=== PATIENT | male | born 1955 | race Caucasian/White ===

== ENCOUNTER 2021-09-01 14:04 | Emergency (ER) | payer MEDICARE, OTHER ==
[~2021-09-01] VITALS: Ht 170.2 cm; Wt 95.0 kg
[2021-09-01 15:14] LABS: HEMATOCRIT 46.8 % (39.0-50.0); HEMOGLOBIN 15.9 g/dl (14.0-18.0); IMMATURE GRANULOCYTES 0.2 % (0.0-5.0); MEAN CELL VOLUME 94.5 fL CALC (80.0-100.0); MEAN CORPUSCULAR HGB 32.1 pG CALC (26.0-32.0); NEUT# 3.08 thou/uL (1.82-7.42); RED BLOOD COUNT 4.95 mill/uL (4.70-6.10); RED CELL DISTRI WIDTH 13.4 % (11.5-15.5)
[2021-09-01 15:20] LABS: ALBUMIN 4.4 g/dL (3.2-5.0); ALKALINE PHOSPHATASE 81 u/l (38-126); ANION GAP 13 (6-22 (CALC)); BILIRUBIN, TOTAL 0.9 mg/dL (0.0-1.4); BUN 17 mg/dL (8-23); BUN/CREATININE RATIO 19 (12-20 (CALC)); CARBON DIOXIDE 27 mmol/l (22-30); CHLORIDE 105 mmol/l (95-108); CREATININE 0.9 mg/dL (0.7-1.3); GFR > 60 ML/MIN (>=60 (CALC)); GFR FOR AFR.AMER. > 60 ML/MIN (>=60 (CALC)); POTASSIUM 3.2 mmol/l (3.5-5.1); SGOT/AST 108 u/l (19-48); SODIUM 143 mmol/l (137-146); TOTAL PROTEIN 8.9 g/dL (6.3-8.2)
[2021-09-01 17:35] VITALS: BP 141/87
[2021-09-01] MEDS ORDERED: PREDNISONE50 MG PO (17:36)
[2021-09-01] MEDS ORDERED: K-TAB20 MEQ PO (17:36)
== END 2021-09-01 17:45 | disposition home or self-care (01) ==
LOC: ED 14:04
DX: J45.909 Unspecified asthma, uncomplicated (principal); R74.8 Abnormal levels of other serum enzymes; I10 Essential (primary) hypertension; K21.9 Gastro-esophageal reflux disease without esophagitis; Z20.822 Contact with and (suspected) exposure to COVID-19
CPT/HCPCS: Q9967

== ENCOUNTER 2021-12-19 21:35 | Emergency (ER) | payer MEDICARE, OTHER ==
[~2021-12-19 21:35] MED LIST: FUROSEMIDE20 MG PO; HUMIRA10 MG/0.1; HYDROXYZINE HYD25 MG PO; K-TAB20 MEQ PO; KAPSPARGO SPRIN50 MG PO; LIPITOR20 M1 PO; MECLIZINE25 MG PO; PREDNISONE50 MG PO; PROTONIX40 M2 PO
== END 2021-12-19 22:18 | disposition home or self-care (01) ==
LOC: ED 21:35 → LWOBS 22:18
DX: Z53.21 Procedure and treatment not carried out due to patient leaving prior to being seen by health care provider (principal)

== ENCOUNTER 2022-01-02 07:04 | Day surgery (SDC) | payer MEDICARE, OTHER ==
[~2022-01-02] VITALS: Ht 170.2 cm; Wt 96.6 kg
[~2022-01-02 07:04] MED LIST changes: +LOSARTAN POTASS50 MG PO
[2022-01-02] MEDS ORDERED: MAGNESIUM500 M1 PO (08:08)
[2022-01-02] MEDS ORDERED: PERCOCET 5/325M1 TAB PO (10:32)
[2022-01-02 11:40] VITALS: BP 137/93
== END 2022-01-02 11:55 | disposition home or self-care (01) ==
LOC: ORM 07:04
PROVIDERS: ATTEND Surgery
PROC: 0FT44ZZ Resection of Gallbladder, Percutaneous Endoscopic Approach (ICD-10-PCS; principal; 2022-01-02)
DX: K80.10 Calculus of gallbladder with chronic cholecystitis without obstruction (principal); K74.69 Other cirrhosis of liver; I10 Essential (primary) hypertension; E11.9 Type 2 diabetes mellitus without complications; K21.9 Gastro-esophageal reflux disease without esophagitis
CPT/HCPCS: J1610; Q9967

== ENCOUNTER 2022-01-03 00:15 | Emergency (ER) | payer MEDICARE, OTHER ==
[~2022-01-03] VITALS: Ht 170.2 cm; Wt 97.0 kg
[2022-01-03] VITALS (12 sets, daily range): BP systolic 119–172; BP diastolic 78–116
[~2022-01-03 00:15] MED LIST changes: +MAGNESIUM500 M1 PO; +PERCOCET 5/325M1 TAB PO
[2022-01-03 01:14] LABS: IMMATURE GRANULOCYTES 0.1 % (0.0-5.0); MEAN CELL VOLUME 98.3 fL CALC (80.0-100.0); MEAN CORPUSCULAR HGB 32.4 pG CALC (26.0-32.0); NEUT# 11.02 thou/uL (1.82-7.42); RED BLOOD COUNT 4.04 mill/uL (4.70-6.10); RED CELL DISTRI WIDTH 14.4 % (11.5-15.5)
[2022-01-03 01:15] LABS: HEMATOCRIT 39.7 % (39.0-50.0); HEMOGLOBIN 13.1 g/dl (14.0-18.0)
[2022-01-03 01:34] LABS: ALBUMIN 3.9 g/dL (3.2-5.0); ALKALINE PHOSPHATASE 77 u/l (38-126); BUN 23 mg/dL (8-23); BUN/CREATININE RATIO 20 (12-20 (CALC)); CHLORIDE 103 mmol/l (95-108); CREATININE 1.2 mg/dL (0.7-1.3); GFR 60 ML/MIN (>=60 (CALC)); GFR FOR AFR.AMER. > 60 ML/MIN (>=60 (CALC)); LIPASE 79 u/l (23-300); POTASSIUM 4.1 mmol/l (3.5-5.1); SGOT/AST 93 u/l (19-48); SODIUM 137 mmol/l (137-146); TOTAL PROTEIN 9.1 g/dL (6.3-8.2)
[2022-01-03 01:35] LABS: ANION GAP 13 (6-22 (CALC)); CARBON DIOXIDE 25 mmol/l (22-30)
[2022-01-03 01:40] LABS: URINE BLOOD DIPSTICK NEGATIVE (NEGATIVE); URINE COLOR YELLOW; URINE GLUCOSE - DIPSTICK NEGATIVE (NEGATIVE); URINE KETONE NEGATIVE (NEGATIVE); URINE LEUK ESTERASE NEGATIVE (NEGATIVE); URINE PROTEIN - DIPSTICK TRACE mg/dL (NEG-TRACE)
[2022-01-03 01:41] LABS: URINE BILIRUBIN - DIPSTICK SMALL (NEGATIVE); URINE NITRITE - DIPSTICK NEGATIVE (Negative)
[2022-01-03 02:02] LABS: ACT PARTIAL THROMBO TIME 27.6 SECONDS (20.0-32.5); INTERNATIONAL NORMALIZED RATIO 1.2 RATIO (0.7-1.3); PROTHROMBIN TIME 12.8 SECONDS (9.0-12.5)
== END 2022-01-03 05:19 | disposition home or self-care (01) ==
LOC: ED 00:15
DX: G89.18 Other acute postprocedural pain (principal); I10 Essential (primary) hypertension; E11.9 Type 2 diabetes mellitus without complications; K21.9 Gastro-esophageal reflux disease without esophagitis; Z90.49 Acquired absence of other specified parts of digestive tract
CPT/HCPCS: Q9967

== ENCOUNTER 2022-01-03 11:36 | Inpatient (IN) | payer MEDICARE, OTHER ==
[2022-01-03] VITALS (23 sets, daily range): BP systolic 112–167; BP diastolic 75–109
[~2022-01-03] VITALS: Ht 170.2 cm; Wt 100.0 kg
[2022-01-03 12:38] LABS: GFR 60 ML/MIN (>=60 (CALC)); GFR FOR AFR.AMER. > 60 ML/MIN (>=60 (CALC))
[2022-01-03 12:39] LABS: HEMATOCRIT 39.5 % (39.0-50.0); HEMOGLOBIN 13.2 g/dl (14.0-18.0); IMMATURE GRANULOCYTES 0.3 % (0.0-5.0); MEAN CELL VOLUME 99.2 fL CALC (80.0-100.0); MEAN CORPUSCULAR HGB 33.2 pG CALC (26.0-32.0); MEAN CORPUSCULAR HGB CONC 33.4 g/dL CAL (32.0-36.0); NEUT# 11.73 thou/uL (1.82-7.42); RED BLOOD COUNT 3.98 mill/uL (4.70-6.10); RED CELL DISTRI WIDTH 14.6 % (11.5-15.5)
[2022-01-03 12:55] LABS: ALBUMIN 4.2 g/dL (3.2-5.0); ALKALINE PHOSPHATASE 88 u/l (38-126); ANION GAP 16 (6-22 (CALC)); BUN 24 mg/dL (8-23); BUN/CREATININE RATIO 19 (12-20 (CALC)); CARBON DIOXIDE 24 mmol/l (22-30); CHLORIDE 101 mmol/l (95-108); CREATININE 1.3 mg/dL (0.7-1.3); GFR 55 ML/MIN (>=60 (CALC)); GFR FOR AFR.AMER. > 60 ML/MIN (>=60 (CALC)); LIPASE 61 u/l (23-300); POTASSIUM 3.8 mmol/l (3.5-5.1); SGOT/AST 83 u/l (19-48); SODIUM 138 mmol/l (137-146); TOTAL PROTEIN 9.9 g/dL (6.3-8.2)
[2022-01-03 12:56] LABS: BILIRUBIN, TOTAL 2.9 mg/dL (0.0-1.4); INTERNATIONAL NORMALIZED RATIO 1.2 RATIO (0.7-1.3); PROTHROMBIN TIME 12.5 SECONDS (9.0-12.5)
[2022-01-03 13:35] LABS: URINE BILIRUBIN - DIPSTICK NEGATIVE (NEGATIVE); URINE BLOOD DIPSTICK SMALL (NEGATIVE); URINE COLOR YELLOW; URINE GLUCOSE - DIPSTICK NEGATIVE (NEGATIVE); URINE KETONE NEGATIVE (NEGATIVE); URINE LEUK ESTERASE NEGATIVE (NEGATIVE); URINE PH 5.5 (4.5-8.0); URINE PROTEIN - DIPSTICK 30 mg/dL (NEG-TRACE); URINE SPECIFIC GRAVITY 1.025
[2022-01-03 13:37] LABS: URINE NITRITE - DIPSTICK NEGATIVE (Negative)
[2022-01-03 13:47] LABS: URINE COARSE GRANULAR CAST FEW lpf; URINE HYALINE CAST FEW lpf (NONE-RARE); URINE RBC 0-2 RBC/hpf (0-5); URINE WBC 0-2 WBC/hpf (0-5)
[2022-01-04] VITALS (15 sets, daily range): BP systolic 100–150; BP diastolic 49–129
[2022-01-04 06:26] LABS: URINE BILIRUBIN - DIPSTICK NEGATIVE (NEGATIVE); URINE BLOOD DIPSTICK TRACE-INTACT (NEGATIVE); URINE COLOR YELLOW; URINE GLUCOSE - DIPSTICK NEGATIVE (NEGATIVE); URINE KETONE NEGATIVE (NEGATIVE); URINE LEUK ESTERASE NEGATIVE (NEGATIVE); URINE PH 5.5 (4.5-8.0); URINE PROTEIN - DIPSTICK NEGATIVE (NEG-TRACE); URINE SPECIFIC GRAVITY 1.025; URINE UROBILINOGEN - DIPSTICK 0.2 E.U./dL (0.2)
[2022-01-04 06:29] LABS: URINE NITRITE - DIPSTICK NEGATIVE (Negative)
[2022-01-04 06:39] LABS: HEMATOCRIT 39.3 % (39.0-50.0); HEMOGLOBIN 12.5 g/dl (14.0-18.0); IMMATURE GRANULOCYTES 0.2 % (0.0-5.0); MEAN CELL VOLUME 103.1 fL CALC (80.0-100.0); MEAN CORPUSCULAR HGB 32.8 pG CALC (26.0-32.0); MEAN CORPUSCULAR HGB CONC 31.8 g/dL CAL (32.0-36.0); NEUT# 9.87 thou/uL (1.82-7.42); RED BLOOD COUNT 3.81 mill/uL (4.70-6.10); RED CELL DISTRI WIDTH 14.7 % (11.5-15.5)
[2022-01-04 06:46] LABS: ALBUMIN 3.6 g/dL (3.2-5.0); BILIRUBIN, TOTAL 2.3 mg/dL (0.0-1.4); CREATININE 1.8 mg/dL (0.7-1.3); POTASSIUM 4.2 mmol/l (3.5-5.1); TOTAL PROTEIN 8.3 g/dL (6.3-8.2)
== END 2022-01-04 12:00 | disposition left against medical advice (07) | DRG 862 ==
LOC: ED 11:36 → ED-I 13:00 → ED 13:42 → ICU 13:43
PROVIDERS: Family Medicine; Surgery; ADMIT Internal Medicine; ATTEND Internal Medicine
DX: T81.44XA Sepsis following a procedure, initial encounter (principal); J96.01 Acute respiratory failure with hypoxia; R65.20 Severe sepsis without septic shock; A41.9 Sepsis, unspecified organism; N17.9 Acute kidney failure, unspecified; G89.18 Other acute postprocedural pain; I11.0 Hypertensive heart disease with heart failure; I50.9 Heart failure, unspecified; E11.9 Type 2 diabetes mellitus without complications; K21.9 Gastro-esophageal reflux disease without esophagitis; E78.5 Hyperlipidemia, unspecified; G47.30 Sleep apnea, unspecified; Y83.6 Removal of other organ (partial) (total) as the cause of abnormal reaction of the patient, or of later complication, without mention of misadventure at the time of the procedure; Z90.49 Acquired absence of other specified parts of digestive tract; Z20.822 Contact with and (suspected) exposure to COVID-19
CPT/HCPCS: G0378; J1650; S0164

== ENCOUNTER 2022-08-25 16:50 | Observation (INO) | payer MEDICARE, OTHER ==
[~2022-08-25] VITALS: Ht 170.2 cm; Wt 92.7 kg
[2022-08-25] VITALS (53 sets, daily range): BP systolic 52–143; BP diastolic 34–103
[~2022-08-25 16:50] MED LIST changes: +CIPROFLOXACN750 MG PO; +METRONIDAZOLE500 MG PO
--- NOTE | 2022-08-25 16:50 | NUR ---
PATIENT TO ED VIA EMS WITH IGEL IN PLACE, PATIENT MOVING ARMS AND LEGS. AT BEDSIDE, VERBAL ORDER TO PREP FOR RAPID INTUBATION.
[2022-08-25 17:25] LABS: IMMATURE GRANULOCYTES 1.1 % (0.0-5.0); MEAN CORPUSCULAR HGB 34.4 pG CALC (26.0-32.0); MEAN CORPUSCULAR HGB CONC 33.4 g/dL CAL (32.0-36.0); NEUT# 6.76 thou/uL (1.82-7.42); RED BLOOD COUNT 4.39 mill/uL (4.70-6.10); RED CELL DISTRI WIDTH 14.4 % (11.5-15.5)
[2022-08-25 17:28] LABS: INTERNATIONAL NORMALIZED RATIO 1.3 RATIO (0.7-1.3)
[2022-08-25 17:29] LABS: HEMATOCRIT 45.2 % (39.0-50.0); HEMOGLOBIN 15.1 g/dl (14.0-18.0)
[2022-08-25 17:38] LABS: ALBUMIN 3.9 g/dL (3.2-5.0); ALKALINE PHOSPHATASE 105 u/l (38-126); BILIRUBIN, TOTAL 1.4 mg/dL (0.0-1.4); BUN 19 mg/dL (8-23); BUN/CREATININE RATIO 13 (12-20 (CALC)); CARBON DIOXIDE 24 mmol/l (22-30); CHLORIDE 109 mmol/l (95-108); CREATININE 1.4 mg/dL (0.7-1.3); ETHYL ALCOHOL 31 mg/dl (0-30); GFR FOR AFR.AMER. > 60 ML/MIN (>=60 (CALC)); GFR OTHER RACES 50 ML/MIN (>=60 (CALC)); LIPASE 447 u/l (23-300); SGOT/AST 123 u/l (19-48); SODIUM 145 mmol/l (137-146); TOTAL PROTEIN 9.6 g/dL (6.3-8.2)
[2022-08-25 17:40] LABS: ANION GAP 17 (6-22 (CALC)); POTASSIUM 5.3 mmol/l (3.5-5.1)
[2022-08-25 17:48] LABS: MYOGLOBIN 59 ng/mL (0 - 121)
[2022-08-25 18:53] LABS: URINE BILIRUBIN - DIPSTICK NEGATIVE (NEGATIVE); URINE BLOOD DIPSTICK NEGATIVE (NEGATIVE); URINE COLOR YELLOW; URINE GLUCOSE - DIPSTICK NEGATIVE (NEGATIVE); URINE KETONE NEGATIVE (NEGATIVE); URINE LEUK ESTERASE NEGATIVE (NEGATIVE); URINE PROTEIN - DIPSTICK NEGATIVE (NEG-TRACE); URINE UROBILINOGEN - DIPSTICK 0.2 E.U./dL (0.2)
--- NOTE | 2022-08-25 18:55 | NUR ---
TRANSITION OF CARE BEDSIDE REPORT TO PHUONG CASAS.
[2022-08-25 18:56] LABS: URINE NITRITE - DIPSTICK NEGATIVE (Negative)
--- NOTE | 2022-08-25 19:35 | NUR ---
RT AT BEDSIDE WEANING PT OFF VENTILATOR DUE TO PT BEING AWAKE AND ALERT AND OXYGENATING WELL. PT WRITING NOTES ON PAPER. PROVIDER AT BEDSIDE.
--- NOTE | 2022-08-25 20:00 | NUR ---
PT EXTUBATED PER DR. HERNANDEZ, DR. HERNANDEZ AND JOLIE RT AT BEDSIDE. PT OXYGENATING WELL, TOLERATING WELL, PT ALERT AND AWAKE. PT REPORTS RELIEF, PLACED ON 3L NC. PT IN NAD, A&OX4, UNLABORED BREATHING NOTED. SLIGHT COUGH NOTED.
--- NOTE | 2022-08-25 21:24 | NUR ---
NASAL CANNULA REMOVED PER PT REQUEST, PT OXYGENATING >92%. PT IN NAD.
--- NOTE | 2022-08-25 22:03 | NUR ---
REPORT GIVEN TO JUWAN CASAS. PT IN NAD, UPDATED ON PLAN OF CARE.
[2022-08-26 03:19] VITALS: BP 145/87
--- NOTE | 2022-08-26 04:26 | NUR ---
Pt alert, oriented x3, able to make needs known. HR-RRR, pt denies pain, chest pain, pressure. No edema noted. Lung sounds clear, pt denies SOB, difficulty breathing. Abd soft, nontender, BT noted. Pt denies nausea. CMS intact. SCD in place. Pt denies needs at this time. Pt resting in no sign of discomfort, will continue to monitor.
[2022-08-26 05:18] VITALS: BP 151/90
[2022-08-26 05:46] LABS: HEMATOCRIT 39.9 % (39.0-50.0); HEMOGLOBIN 13.2 g/dl (14.0-18.0); IMMATURE GRANULOCYTES 0.1 % (0.0-5.0); MEAN CELL VOLUME 103.1 fL CALC (80.0-100.0); MEAN CORPUSCULAR HGB 34.1 pG CALC (26.0-32.0); MEAN CORPUSCULAR HGB CONC 33.1 g/dL CAL (32.0-36.0); NEUT# 5.77 thou/uL (1.82-7.42); RED BLOOD COUNT 3.87 mill/uL (4.70-6.10); RED CELL DISTRI WIDTH 14.7 % (11.5-15.5)
[2022-08-26 06:03] LABS: ALKALINE PHOSPHATASE 85 u/l (38-126); BILIRUBIN, TOTAL 1.6 mg/dL (0.0-1.4); BUN 17 mg/dL (8-23); BUN/CREATININE RATIO 16 (12-20 (CALC)); CARBON DIOXIDE 25 mmol/l (22-30); CHLORIDE 112 mmol/l (95-108); CREATININE 1.1 mg/dL (0.7-1.3); GFR FOR AFR.AMER. > 60 ML/MIN (>=60 (CALC)); GFR OTHER RACES > 60 ML/MIN (>=60 (CALC)); MAGNESIUM 1.1 mg/dL (1.6-2.3); SGOT/AST 96 u/l (19-48); SODIUM 145 mmol/l (137-146)
[2022-08-26 06:10] VITALS: BP 151/90
[2022-08-26 06:19] LABS: ANION GAP 12 (6-22 (CALC)); POTASSIUM 4.2 mmol/l (3.5-5.1); TOTAL PROTEIN 7.6 g/dL (6.3-8.2)
--- NOTE | 2022-08-26 07:30 | NUR ---
BEDSIDE SHIFT REPORT, PT AWAKE ALERT AND ORIENTED, C/O SEVERE ACHING HEADACHE @ "13/10", AND HUNGER, INFORMED OF MEDICAL NPO ORDERS AND THAT MD WILL EVALUATE CONDITION ON ROUNDS. PAIN CONCERN ADDRESSED, TELE MONITOR IN PLACE, IVF 0.9 NS INFUSING @ 100 ML/HR TO SITE IN , CALL [place] IN REACH AND BED LOCKED IN LOWEST POSITION.
[2022-08-26 09:32] VITALS: BP 116/65
[2022-08-26 10:30] VITALS: BP 116/65
--- NOTE | 2022-08-26 12:03 | NUR ---
PT IS FEELING MUCH BETTER NOW, GETTING IV MAGNESIUM, EDUCATED ON BENEFITS OF THIS MED AND STATED UNDERSTANDING, WILL GO HOME AT COMPLETION OF MAG INFUSION.
--- NOTE | 2022-08-26 13:13 | NUR ---
Discharge instructions given. Patient verbalizes understanding of same. Discharged in good condition via Wheelchair to Home with family. All belongings sent with pt.
--- NOTE | 2022-08-26 13:14 | NUR ---
# 20 IV CATHETER REMOVED FROM RAC AND 20 REMOVED FROM LH, PRESSURE DRESSING APPLIED, PT TOLERATED WELL.
== END 2022-08-26 13:15 | disposition home or self-care (01) ==
LOC: ED 16:50 → ED-I 20:10 → ED 20:25 → MS2 20:26
PROVIDERS: Family Medicine; ADMIT Internal Medicine; ATTEND Internal Medicine
PROC: 0T9B70Z Drainage of Bladder with Drainage Device, Via Natural or Artificial Opening (ICD-10-PCS; principal; 2022-08-25)
PROC: 5A1935Z Respiratory Ventilation, Less than 24 Consecutive Hours (ICD-10-PCS; 2022-08-25)
DX: R41.82 Altered mental status, unspecified (principal); J96.01 Acute respiratory failure with hypoxia; I11.0 Hypertensive heart disease with heart failure; I50.9 Heart failure, unspecified; E11.9 Type 2 diabetes mellitus without complications; K21.9 Gastro-esophageal reflux disease without esophagitis; E86.0 Dehydration; E78.5 Hyperlipidemia, unspecified
CPT/HCPCS: J3475; Q9967

== ENCOUNTER 2023-06-02 17:56 | Emergency (ER) | payer MEDICARE, OTHER ==
[2023-06-02] VITALS (19 sets, daily range): BP systolic 82–136; BP diastolic 50–91
[~2023-06-02] VITALS: Ht 170.2 cm; Wt 82.0 kg
[2023-06-02 20:18] LABS: BASO% 0.8 % (0-3); IMMATURE GRANULOCYTES 0.3 % (0.0-5.0); MEAN CELL VOLUME 104.8 fL CALC (80.0-100.0); MEAN CORPUSCULAR HGB 34.6 pG CALC (26.0-32.0); MEAN CORPUSCULAR HGB CONC 33.1 g/dL CAL (32.0-36.0); NEUT# 3.37 thou/uL (1.82-7.42); NEUT% 43.9 % (42-76); RED BLOOD COUNT 2.31 mill/uL (4.70-6.10); RED CELL DISTRI WIDTH 17.2 % (11.5-15.5)
[2023-06-02 20:46] LABS: HEMATOCRIT 24.2 % (39.0-50.0)
[2023-06-02 21:13] LABS: ALBUMIN 2.6 g/dL (3.2-5.0); ALKALINE PHOSPHATASE 105 u/l (38-126); ANION GAP 12 (6-22 (CALC)); BUN 21 mg/dL (8-23); BUN/CREATININE RATIO 18 (12-20 (CALC)); CARBON DIOXIDE 25 mmol/l (22-30); CHLORIDE 110 mmol/l (95-108); CREATININE 1.1 mg/dL (0.7-1.3); GFR FOR AFR.AMER. > 60 ML/MIN (>=60 (CALC)); GFR OTHER RACES > 60 ML/MIN (>=60 (CALC)); POTASSIUM 4.1 mmol/l (3.5-5.1); SGOT/AST 115 u/l (19-48); SODIUM 143 mmol/l (137-146); TOTAL PROTEIN 8.3 g/dL (6.3-8.2)
[2023-06-02 21:20] LABS: INTERNATIONAL NORMALIZED RATIO 1.6 RATIO (0.7-1.3); PROTHROMBIN TIME 15.5 SECONDS (9.0-12.5)
[2023-06-02 21:23] LABS: BILIRUBIN, TOTAL 3.6 mg/dL (0.2-1.3)
[2023-06-02 21:28] LABS: D-DIMER 26.03 mg/L (0.19-0.60)
[2023-06-03] MEDS ORDERED: LASIX 20 MG TAB20 MG PO (10:44)
== END 2023-06-02 23:30 | disposition left against medical advice (07) ==
LOC: ED 17:56
PROVIDERS: Nurse Practitioner Family
DX: K74.60 Unspecified cirrhosis of liver (principal); R18.8 Other ascites; D64.9 Anemia, unspecified; E83.51 Hypocalcemia; I10 Essential (primary) hypertension; Z53.29 Procedure and treatment not carried out because of patient's decision for other reasons
CPT/HCPCS: Q9967

== ENCOUNTER 2023-06-03 07:43 | Emergency (ER) | payer MEDICARE, OTHER ==
[~2023-06-03] VITALS: Ht 170.2 cm; Wt 98.9 kg
[2023-06-03] VITALS (9 sets, daily range): BP systolic 96–120; BP diastolic 64–76
[2023-06-03 08:21] LABS: BASO% 0.2 % (0-3); HEMATOCRIT 28.7 % (39.0-50.0); HEMOGLOBIN 9.4 g/dl (14.0-18.0); IMMATURE GRANULOCYTES 0.2 % (0.0-5.0); LYMPH% 19.2 % (15-41); MEAN CELL VOLUME 105.1 fL CALC (80.0-100.0); MEAN CORPUSCULAR HGB 34.4 pG CALC (26.0-32.0); MEAN CORPUSCULAR HGB CONC 32.8 g/dL CAL (32.0-36.0); MONO% 4.4 % (2-13); NEUT# 3.43 thou/uL (1.82-7.42); RED BLOOD COUNT 2.73 mill/uL (4.70-6.10); RED CELL DISTRI WIDTH 16.7 % (11.5-15.5)
[2023-06-03 08:47] LABS: ALBUMIN 2.8 g/dL (3.2-5.0); ALKALINE PHOSPHATASE 103 u/l (38-126); ANION GAP 12 (6-22 (CALC)); BILIRUBIN, TOTAL 3.1 mg/dL (0.2-1.3); BUN 23 mg/dL (8-23); BUN/CREATININE RATIO 22 (12-20 (CALC)); CARBON DIOXIDE 23 mmol/l (22-30); CHLORIDE 108 mmol/l (95-108); GFR FOR AFR.AMER. > 60 ML/MIN (>=60 (CALC)); GFR OTHER RACES > 60 ML/MIN (>=60 (CALC)); POTASSIUM 3.6 mmol/l (3.5-5.1); SGOT/AST 119 u/l (19-48); SODIUM 140 mmol/l (137-146); TOTAL PROTEIN 8.9 g/dL (6.3-8.2)
[2023-06-03] MEDS ORDERED: LASIX 20 MG TAB20 MG PO (10:44)
== END 2023-06-03 10:53 | disposition left against medical advice (07) ==
LOC: ED 07:43 → ED-I 09:40 → ED 10:53
PROVIDERS: Family Medicine
PROC: 0W9G3ZZ Drainage of Peritoneal Cavity, Percutaneous Approach (ICD-10-PCS; principal; 2023-06-03)
DX: K74.60 Unspecified cirrhosis of liver (principal); R18.8 Other ascites; I10 Essential (primary) hypertension; F10.10 Alcohol abuse, uncomplicated; E66.9 Obesity, unspecified; Z53.29 Procedure and treatment not carried out because of patient's decision for other reasons

== ENCOUNTER 2023-06-10 00:28 | Emergency (ER) | payer MEDICARE, OTHER ==
[~2023-06-10] VITALS: Ht 170.2 cm; Wt 78.0 kg
[2023-06-10] VITALS (10 sets, daily range): BP systolic 112–138; BP diastolic 68–84
[~2023-06-10 00:28] MED LIST changes: +LASIX 20 MG TAB20 MG PO
[2023-06-10] MEDS ORDERED: LASIX 40 MG TAB40 MG PO (01:03)
[2023-06-10] MEDS ORDERED: METOPROLOL100 M1 PO (01:05)
[2023-06-10 01:16] LABS: BASO% 0.8 % (0-3); EOS% 4.3 % (0-8); HEMOGLOBIN 9.8 g/dl (14.0-18.0); IMMATURE GRANULOCYTES 0.2 % (0.0-5.0); LYMPH% 31.2 % (15-41); MEAN CELL VOLUME 101.8 fL CALC (80.0-100.0); MEAN CORPUSCULAR HGB 34.4 pG CALC (26.0-32.0); MEAN CORPUSCULAR HGB CONC 33.8 g/dL CAL (32.0-36.0); MONO% 12.6 % (2-13); NEUT# 3.2 thou/uL (1.82-7.42); NEUT% 50.9 % (42-76); RED BLOOD COUNT 2.85 mill/uL (4.70-6.10); RED CELL DISTRI WIDTH 16.2 % (11.5-15.5)
[2023-06-10 01:27] LABS: ALBUMIN 2.8 g/dL (3.2-5.0); ALKALINE PHOSPHATASE 124 u/l (38-126); ANION GAP 8 (6-22 (CALC)); BILIRUBIN, TOTAL 3.8 mg/dL (0.2-1.3); BUN 17 mg/dL (8-23); BUN/CREATININE RATIO 21 (12-20 (CALC)); CHLORIDE 105 mmol/l (95-108); CREATININE 0.8 mg/dL (0.7-1.3); ETHYL ALCOHOL 0 mg/dl (0-30); GFR FOR AFR.AMER. > 60 ML/MIN (>=60 (CALC)); GFR OTHER RACES > 60 ML/MIN (>=60 (CALC)); SGOT/AST 123 u/l (19-48); SODIUM 138 mmol/l (137-146); TOTAL PROTEIN 8.5 g/dL (6.3-8.2)
[2023-06-10 01:40] LABS: CARBON DIOXIDE 28 mmol/l (22-30)
[2023-06-10 01:48] LABS: INTERNATIONAL NORMALIZED RATIO 1.5 RATIO (0.7-1.3); PROTHROMBIN TIME 16.1 SECONDS (9.0-12.5)
[2023-06-10] MEDS ORDERED: KRISTALOSE20 GM PO (02:30)
[2023-06-10] MEDS ORDERED: POTASSIUM CHLO20 ME1 PO (02:30)
[2023-06-10] MEDS ORDERED: SPIRONOLACT25 MG PO (02:33)
[2023-06-11] MEDS ORDERED: CONSTULOSE10 GM/15 M PO (11:38)
== END 2023-06-10 02:45 | disposition home or self-care (01) ==
LOC: ED 00:28
PROVIDERS: Family Medicine
DX: K74.60 Unspecified cirrhosis of liver (principal); R18.8 Other ascites; I10 Essential (primary) hypertension; Z20.822 Contact with and (suspected) exposure to COVID-19; R07.9 Chest pain, unspecified

== ENCOUNTER 2023-06-17 07:29 | Emergency (ER) | payer MEDICARE, OTHER ==
[2023-06-17] VITALS (16 sets, daily range): BP systolic 106–134; BP diastolic 68–92
[~2023-06-17] VITALS: Ht 170.2 cm; Wt 78.4 kg
[~2023-06-17 07:29] MED LIST changes: +CONSTULOSE10 GM/15 M PO; +KRISTALOSE20 GM PO; +LASIX 40 MG TAB40 MG PO; +METOPROLOL100 M1 PO; +POTASSIUM CHLO20 ME1 PO; +SPIRONOLACT25 MG PO
[2023-06-17 07:57] LABS: BASO% 0.6 % (0-3); EOS% 4.5 % (0-8); HEMATOCRIT 29.6 % (39.0-50.0); HEMOGLOBIN 10.3 g/dl (14.0-18.0); IMMATURE GRANULOCYTES 0.1 % (0.0-5.0); LYMPH% 34.1 % (15-41); MEAN CORPUSCULAR HGB 35.2 pG CALC (26.0-32.0); MEAN CORPUSCULAR HGB CONC 34.8 g/dL CAL (32.0-36.0); MONO% 7.4 % (2-13); NEUT# 3.7 thou/uL (1.82-7.42); NEUT% 53.3 % (42-76); RED BLOOD COUNT 2.93 mill/uL (4.70-6.10); RED CELL DISTRI WIDTH 15.7 % (11.5-15.5)
[2023-06-17 08:11] LABS: INTERNATIONAL NORMALIZED RATIO 1.6 RATIO (0.7-1.3)
[2023-06-17] MEDS ORDERED: CREON1 CAP (08:12)
[2023-06-17 08:15] LABS: ALBUMIN 2.9 g/dL (3.2-5.0); ALKALINE PHOSPHATASE 125 u/l (38-126); ANION GAP 10 (6-22 (CALC)); BILIRUBIN, TOTAL 3.6 mg/dL (0.2-1.3); BUN 10 mg/dL (8-23); BUN/CREATININE RATIO 12 (12-20 (CALC)); CARBON DIOXIDE 26 mmol/l (22-30); CHLORIDE 104 mmol/l (95-108); CREATININE 0.9 mg/dL (0.7-1.3); GFR FOR AFR.AMER. > 60 ML/MIN (>=60 (CALC)); GFR OTHER RACES > 60 ML/MIN (>=60 (CALC)); LIPASE 159 u/l (23-300); POTASSIUM 3.9 mmol/l (3.5-5.1); SGOT/AST 119 u/l (19-48); SODIUM 136 mmol/l (137-146); TOTAL PROTEIN 8.7 g/dL (6.3-8.2)
[2023-06-17 12:21] LABS: URINE BILIRUBIN - DIPSTICK Negative (NEGATIVE); URINE BLOOD DIPSTICK Negative (NEGATIVE); URINE GLUCOSE - DIPSTICK Negative (NEGATIVE); URINE KETONE Negative (NEGATIVE); URINE LEUK ESTERASE Negative (NEGATIVE); URINE NITRITE - DIPSTICK Negative (Negative); URINE PROTEIN - DIPSTICK Negative (NEG-TRACE); URINE SPECIFIC GRAVITY <=1.005
[2023-06-17 12:30] LABS: URINE COLOR Yellow
== END 2023-06-17 15:51 | disposition home or self-care (01) ==
LOC: ED 07:29
PROVIDERS: Family Medicine
PROC: 0W9G3ZZ Drainage of Peritoneal Cavity, Percutaneous Approach (ICD-10-PCS; principal; 2023-06-17)
DX: K70.31 Alcoholic cirrhosis of liver with ascites (principal); I10 Essential (primary) hypertension; N28.1 Cyst of kidney, acquired; F10.10 Alcohol abuse, uncomplicated
CPT/HCPCS: P9047; Q9967

== ENCOUNTER 2023-06-27 19:09 | Inpatient (IN) | payer MEDICARE, OTHER ==
[~2023-06-27] VITALS: Ht 170.2 cm; Wt 70.0 kg
[~2023-06-27 19:09] MED LIST changes: +CREON1 CAP
--- NOTE | 2023-06-27 19:09 | NUR ---
PATIENT AMBULATORY A FEW STEPS TO ER STRETCHER. UNDRESSED INTO A GOWN, PLACED ON MONITOR. TRIAGE COMPLETED AT BEDSIDE.
[2023-06-27 19:17] VITALS: BP 127/80
[2023-06-27 20:00] VITALS: BP 111/67
[2023-06-27 20:05] LABS: BASO% 0.3 % (0-3); EOS% 3.2 % (0-8); HEMATOCRIT 28.4 % (39.0-50.0); HEMOGLOBIN 9.6 g/dl (14.0-18.0); IMMATURE GRANULOCYTES 0.5 % (0.0-5.0); LYMPH% 27.6 % (15-41); MEAN CELL VOLUME 101.1 fL CALC (80.0-100.0); MEAN CORPUSCULAR HGB 34.2 pG CALC (26.0-32.0); MEAN CORPUSCULAR HGB CONC 33.8 g/dL CAL (32.0-36.0); MONO% 11.7 % (2-13); NEUT# 3.53 thou/uL (1.82-7.42); NEUT% 56.7 % (42-76); RED BLOOD COUNT 2.81 mill/uL (4.70-6.10); RED CELL DISTRI WIDTH 14.6 % (11.5-15.5)
--- NOTE | 2023-06-27 20:13 | NUR ---
PATIENT ATTEMPTING TO VOID FOR URINE AMPLE, URINAL PROVIDED, PATIENT ALERT, C/O DISCOMFORT RATED A 3/10, PATIENT UPDATED ON CONTINUOUS PLAN OF CARE, AWAITING RESULTS AND CHEST XRAY.
[2023-06-27 20:16] LABS: ALBUMIN 2.9 g/dL (3.2-5.0); ALKALINE PHOSPHATASE 108 u/l (38-126); ANION GAP 10 (6-22 (CALC)); BILIRUBIN, TOTAL 2.7 mg/dL (0.2-1.3); BUN 17 mg/dL (8-23); BUN/CREATININE RATIO 18 (12-20 (CALC)); CARBON DIOXIDE 27 mmol/l (22-30); CHLORIDE 103 mmol/l (95-108); GFR FOR AFR.AMER. > 60 ML/MIN (>=60 (CALC)); GFR OTHER RACES > 60 ML/MIN (>=60 (CALC)); POTASSIUM 3.6 mmol/l (3.5-5.1); SGOT/AST 113 u/l (19-48); SODIUM 136 mmol/l (137-146); TOTAL PROTEIN 8.5 g/dL (6.3-8.2)
[2023-06-27 20:17] LABS: INTERNATIONAL NORMALIZED RATIO 1.8 RATIO (0.7-1.3); PROTHROMBIN TIME 16.3 SECONDS (9.0-12.5)
[2023-06-27 20:45] VITALS: BP 118/67
--- NOTE | 2023-06-27 21:00 | NUR ---
PATIENT RESTING ON STRETCHER. GIVEN WARM BLANKETS. PATIENT ENCOURAGED TO VOID FOR URINE SAMPLE.
--- NOTE | 2023-06-27 22:00 | NUR ---
PATIENT C/O FEELING WEAK, AND OVERALL NOT FEELING WELL. MD AWARE. CONTINUE AWAITING ALL RESULTS AND PLAN OF CARE.
[2023-06-27 22:55] VITALS: BP 133/86
[2023-06-27 23:00] VITALS: BP 113/77
[2023-06-27 23:03] LABS: URINE BILIRUBIN - DIPSTICK Negative (NEGATIVE); URINE BLOOD DIPSTICK Negative (NEGATIVE); URINE COLOR Yellow; URINE GLUCOSE - DIPSTICK Negative (NEGATIVE); URINE KETONE Negative (NEGATIVE); URINE LEUK ESTERASE Negative (NEGATIVE); URINE NITRITE - DIPSTICK Negative (Negative); URINE PROTEIN - DIPSTICK Negative (NEG-TRACE); URINE SPECIFIC GRAVITY 1.015
--- NOTE | 2023-06-27 23:15 | NUR ---
PATIENT TO BE ADMITTED. ABX HUNG ORDERED. AWAITING ORDERS AND PLAN OF CARE.
--- NOTE | 2023-06-28 | NUR ---
PATIENT ADMITTED FROM ER VIA STRETCHER WITH ER STAFF IN ATTENDANCE. PATIENT MAX ASSIST FROM STRETCHER TO THE STANDING SCALE TO THE BED. PATIENT STATES THAT HE THINKS HE HAS TO URINATE BUT CAN'T. PATIENT IS ORIENTED TO PERSON AND PLACE BUT VERY ANXIOUS. PATIENT ADMITTED WITH LIVER CIRRHOSIS, ELVATED AMMONIA AND COLITIS. PATIENT WITH TELE MONITOR IN PLACE. SALINE LOCK TO LEFT WRIST INTACT AND HEALTHY AT THIS TIME.LUNGS ARE CLEAR WITH O2 SAT OF 95%. PATIENT IS JAUNDICE WITH ASCITES. HAD PARACENTESIS DONE 8 DAYS AGO AND OVER 5 LITERS REMOVED. STATES THAT HE STOPPED DRINKING ALCOHOL SEVERAL DAYS AGO. LUNGS ARE CLEAR. PATIENT STATES THAT HIS LAST BM WAS YESTERDAY. HAVING TROUBLE WITH URINATION. NO PERIOPHERAL EDEMA NOTED. PULSES ARE PALPABLE. PATIENT ORIENTED TO ROOM AND SURROUNDINGS. INSTRUCTED ON USE OF NURSE CALL LIGHT SYSTEM AND TV REMOTE. MEDICATED WITH LACTULOSE ORDERED AND TAKING PO FLUJIDS WITHOUT ANY DIFFICULTY. SAFETY PRECAUTIONS REINFORCED. BED ALARM IN PLACE FOR PATIENT SAFETY. CALL LIGHT IN REACH. WILL CONT TO MONITOR.
--- NOTE | 2023-06-28 00:15 | NUR ---
PATIENT TO MED SURG VIA STRETCHER.
[2023-06-28 00:35] VITALS: BP 128/78
--- NOTE | 2023-06-28 01:45 | NUR ---
PATIENT STATES THAT HE FEELS LIKE HE HAS TO VOID BUT CAN'T EVEN STANDING AT BEDSIDE WITH ASSIST. BLADDER SCAN WAS DONE AND SHOWS 505MLS. #16 [place] QUARLES CATH INSERTED WITHOUT DIFFICULTY AND DRAINED 500CC OF YELLOW URINE IMMEDIATELY. CONT TO BE HIGH ANXIETY. BED ALART IN PLACE. CALL LIGHT IN REACH. WILL CONT TO MONITOR.
--- NOTE | 2023-06-28 02:51 | NUR ---
PATIENT REMAINS VERY ANXIOUS AND RESTLESS. MEDICATED WITH ATIVAN 1MG IVP ORDERED. BED ALARM IN PLACE FOR PATIENT SAFETY. CALL LIGHT IN REACH. WILL CONT TO MONITOR.
[2023-06-28 04:23] VITALS: BP 130/87
--- NOTE | 2023-06-28 04:40 | NUR ---
PATIENT RESTING QUIETLY IN BED AT THIS TIME. EYES ARE CLOSED AND RESPS ARE EVEN AND UNLABORED. TELE IS SR-90'S WITH PVC'S. SALINE LOCK INTACT. CALL LIGHT IN REACH. BED ALARM IN PLACE FOR PATIENT SAFETY. CALL LIGHT IN REACH. WILL CONT TO MONITOR.
--- NOTE | 2023-06-28 05:15 | NUR ---
PATIENT BED ALRM GOING OFF-PATIENT FOUND TRYING TO GET OOB-UNSTEADY ON HIS FEET. STATES THAT HE HAS TO HAVE BM-ASSISTED TO THE BSC WITHOUT ANY BM. ASSISTED BACK TO BED. TELE REMAINS IN PLACE. QUARLES EMPTIED FOR 150CC OF ANA URINE. BED ALRM IN PLACE FOR PATIENT SAFETY. CALL LIGHT IN REACH. WILL CONT TO MONITOR.
[2023-06-28 06:15] LABS: BASO% 0.3 % (0-3); EOS% 2.4 % (0-8); HEMATOCRIT 28.1 % (39.0-50.0); HEMOGLOBIN 9.7 g/dl (14.0-18.0); IMMATURE GRANULOCYTES 0.2 % (0.0-5.0); LYMPH% 21.2 % (15-41); MEAN CELL VOLUME 100.7 fL CALC (80.0-100.0); MEAN CORPUSCULAR HGB 34.8 pG CALC (26.0-32.0); MEAN CORPUSCULAR HGB CONC 34.5 g/dL CAL (32.0-36.0); MONO% 8.8 % (2-13); NEUT# 3.89 thou/uL (1.82-7.42); NEUT% 67.1 % (42-76); RED BLOOD COUNT 2.79 mill/uL (4.70-6.10); RED CELL DISTRI WIDTH 14.8 % (11.5-15.5)
[2023-06-28 06:26] LABS: ALBUMIN 2.6 g/dL (3.2-5.0); ALKALINE PHOSPHATASE 85 u/l (38-126); ANION GAP 11 (6-22 (CALC)); BILIRUBIN, TOTAL 3.6 mg/dL (0.2-1.3); BUN 15 mg/dL (8-23); BUN/CREATININE RATIO 18 (12-20 (CALC)); CARBON DIOXIDE 23 mmol/l (22-30); CHLORIDE 106 mmol/l (95-108); CREATININE 0.8 mg/dL (0.7-1.3); GFR FOR AFR.AMER. > 60 ML/MIN (>=60 (CALC)); GFR OTHER RACES > 60 ML/MIN (>=60 (CALC)); POTASSIUM 3.4 mmol/l (3.5-5.1); SGOT/AST 107 u/l (19-48); SODIUM 137 mmol/l (137-146); TOTAL PROTEIN 7.8 g/dL (6.3-8.2)
[2023-06-28 06:27] LABS: MAGNESIUM 1.5 mg/dL (1.6-2.3)
[2023-06-28 07:23] VITALS: BP 115/68
--- NOTE | 2023-06-28 08:00 | NUR ---
PT IN BED WITH HOB UP, PT IS ALERT AND OREINTED TO SELF, PT REMAINS CONFUSED. PT STATES HE HAS PAIN WHEN URINATING, HOWEVER PT HAS QUARLES CATHETER; SITE IS CLEAN AND FREE FROM REDNESS. IV SITE TO LAC CLEAN AND INTACT, SL. PT HAS QUARLES CATH DRAINING DARK ANA URINE. PT LUNG SOUNDS DIMINISHED. ABD IS DISTENDED. PT HAS BEDSIDE COMMODE FOR TOILETING NEEDS. PT HAS CALL LIGHT WITHIN REACH AND ALL SAFETY MEASURES IN PLACE AT THIS TIME.
--- NOTE | 2023-06-28 10:52 | NUR ---
PT HAVING ANXIETY AND REQUESTING THE FOLRY BE REMOVED. PER SHAWN DE LEON OK TO REMOVE QUARLES AND DOA VOID TRIAL. QUARLES REMOVED TIP INTACT, PT TOLERATED WELL. PT HAS CALL LIGHT WITHIN REACH AND ALL SAFETY MEASURES IN PLACE AT THIS TIME.
[2023-06-28 11:22] VITALS: BP 116/72
--- NOTE | 2023-06-28 12:09 | NUR ---
PT IN BED WITH HOB UP. PT REMAINS CONFUSED AND TRYING TO GET UP TO USE THE BATHROOM; PT WEARING BREIF AT THIS TIME AND MADE AWARE OF THAT. PT HAS MAGNESIUM INFUSING VIA IV. PT HAS ALL SAFETY MEAUSURES, BED IN LOWEST POSITION, BED ALARM ON. PT HAS CALL LIGHT WITHIN REACH.
--- NOTE | 2023-06-28 12:20 | NUR ---
PT DOWN TO RADIOLOGY FOR PARACENTISIS.
[2023-06-28 15:10] VITALS: BP 114/69
--- NOTE | 2023-06-28 16:00 | NUR ---
PT IN BED WITH HOB , FRIEND IN RM VISITING. PT HAS NO CHANGE IN STATUS AT THIS TIME. PT HAS CALL LIGHT WITHIN REACH AND ALL SAFETY MEASURES IN PLACE AT THIS TIME.
[2023-06-28 19:56] VITALS: BP 114/68
--- NOTE | 2023-06-28 20:05 | NUR ---
MD INFORMED OF PT C/O OF PAIN. PT AWARE OF CIRROHIS DX. ORDERED FOR OXYCODONE 5 MG PO X1 DOSE. ORDER FAXED TO PHARMACY
--- NOTE | 2023-06-28 20:15 | NUR ---
BEDSIDE REPORT RECIEVED. PT A/OX3 WITH CONFUSION. RESPIRATIONS EVEN AND UNLABORED ON ROOM AIR. LUNG SOUNDS CLEAR. HEART RHYTHM NORMAL WITH TELE IN PLACE. BOWEL SOUNDS ACTIVE.ABD DISTENDED.LBM 06/27/23. PULSES STRONG. 2+ EDEMA NOTED TO BLE. PT C/O OF 8/10 ABD PAIN, NO ORDERS AT THIS TIME. MD TO BE INFORMED. PT DENIES OF ANY ADDITIONAL NEEDS. PT ORIENTED TO ROOM AND CALL LIGHT SYSTEM. PT INSTRUCTED TO CALL BEFORE GETTING OUT OF BED. PT VERBALIZED UNDERSTANDING. ALL SAFETY PRECAUTIONS ARE IN PLACE WITH CALL LIGHT IN REACH AND BED ALARM ACTIVE.
[2023-06-29] VITALS (9 sets, daily range): BP systolic 88–109; BP diastolic 46–68
--- NOTE | 2023-06-29 00:47 | NUR ---
PT BECOMING INCREASINGLY AGGITATED AND COMPLAINS OF NAUSEA. PT CONTINUES TO GET OUT OF BED. PLANER CHAIN OFFBEARER INFORMED. VERBAL ORDERS FOR ZOFRAN AND ATIVAN.
--- NOTE | 2023-06-29 01:50 | NUR ---
ATIVAN HELD AT THIS TIME DUE TO BP. PT APPEARS SLIGHTLY MORE CALM BUT CONTINUES TO ATTEMPT TO GET OUT OF BED.
--- NOTE | 2023-06-29 02:05 | NUR ---
Patient was very restless and kept complaining about vomitting and dizziness. Nurse was notifed.Patient was very unsteady.
--- NOTE | 2023-06-29 04:07 | NUR ---
PT RESTING IN SEMI FOWLERS POSITION. PT APPEARS TO BE MUCH MORE COMFORTABLE. RESPIRATIONS EVEN AND UNLABORED ON ROOM AIR. TELE MONITORING IN PLACE. IV SITE NOTED. PT DENIES OF ANY NEEDS AT THIS TIME. ALL SAFETY PRECAUTIONS ARE IN PLACE WITH CALL LIGHT IN REACH. BED ALARM ACTIVE
--- NOTE | 2023-06-29 05:26 | NUR ---
ATTEMPT TO START NEW IV. UNSUCCESSFUL X2
[2023-06-29 05:44] LABS: BASO% 0.6 % (0-3); EOS% 3.9 % (0-8); HEMATOCRIT 28.2 % (39.0-50.0); HEMOGLOBIN 9.7 g/dl (14.0-18.0); IMMATURE GRANULOCYTES 0.2 % (0.0-5.0); LYMPH% 29.4 % (15-41); MEAN CELL VOLUME 100.7 fL CALC (80.0-100.0); MEAN CORPUSCULAR HGB 34.6 pG CALC (26.0-32.0); MEAN CORPUSCULAR HGB CONC 34.4 g/dL CAL (32.0-36.0); MONO% 9.7 % (2-13); NEUT# 3.57 thou/uL (1.82-7.42); NEUT% 56.2 % (42-76); RED BLOOD COUNT 2.8 mill/uL (4.70-6.10); RED CELL DISTRI WIDTH 14.8 % (11.5-15.5)
[2023-06-29 06:00] LABS: ALBUMIN 2.6 g/dL (3.2-5.0); ALKALINE PHOSPHATASE 78 u/l (38-126); ANION GAP 9 (6-22 (CALC)); BILIRUBIN, TOTAL 4.5 mg/dL (0.2-1.3); BUN 13 mg/dL (8-23); BUN/CREATININE RATIO 16 (12-20 (CALC)); CARBON DIOXIDE 25 mmol/l (22-30); CHLORIDE 103 mmol/l (95-108); CREATININE 0.8 mg/dL (0.7-1.3); GFR FOR AFR.AMER. > 60 ML/MIN (>=60 (CALC)); GFR OTHER RACES > 60 ML/MIN (>=60 (CALC)); POTASSIUM 3.7 mmol/l (3.5-5.1); SGOT/AST 101 u/l (19-48); SODIUM 133 mmol/l (137-146); TOTAL PROTEIN 7.6 g/dL (6.3-8.2)
[2023-06-29 06:01] LABS: INTERNATIONAL NORMALIZED RATIO 1.9 RATIO (0.7-1.3); PROTHROMBIN TIME 17.3 SECONDS (9.0-12.5)
[2023-06-29 06:10] LABS: MAGNESIUM 1.9 mg/dL (1.6-2.3)
[2023-06-29] MEDS ORDERED: ALPRAZOLAM0.5 M2 PO (09:18)
--- NOTE | 2023-06-29 19:35 | NUR ---
PATIENT RESTING IN BED ON HIS SIDE. ASSESSMENT COMPLETE. NO DISTRESS NOTED. NO COMPLAINTS OF PAIN VOICED AT THIS TIME. AMBULATES TO RESTROOM WITH STANDBY ASSIST. EXPLAINED TO PATIENT WE NEED TO RECORD HIS I AND O. REHABILITATOR MENTIONED TO THIS NURSE THAT DURING REPORT FROM DAY SHIFT REHABILITATOR, PATIENT HAD A SUBWAY SUB FOR LUNCH. PATIENT IS ON A CLEAR LIQUID DIET. PROVIDER WAS INFORMED.
--- NOTE | 2023-06-29 22:25 | NUR ---
CALLED STAVE MACHINE TENDER PROVIDER INFORMING OF PATIENT COMPLAINING OF CHEST TIGHTNESS. VITAL SIGNS TAKEN. MD AWARE OF LOW BLOOD PRESSURE AND OF ALDACTONE BEING HELD. EKG DONE SHOWING SINUS DIPIKA IN THE 50S. STAT TROPONIN DRAWN. WAITING FOR RESULTS. PATIENT DENIES HAVING ANY CHEST PAIN. MD GAVE NEW MED ORDER. SEE EMAR FOR DETAILS.
--- NOTE | 2023-06-29 23:19 | NUR ---
PATIENT RESTING IN BED WATCHING TV, LAUGHING. NO COMPLAINTS OF CHEST PAIN OR TIGHTNESS. DENIES NEEDING ANYTHING AT THIS TIME.
--- NOTE | 2023-06-29 23:43 | NUR ---
Nurse was notified about patient blood pressure.
[2023-06-30 03:00] VITALS: BP 99/59
--- NOTE | 2023-06-30 03:02 | NUR ---
PATIENT COMPLAINING OF INDIGESTION WHILE LAYING ON HIS RIGHT SIDE. NO DISTRESS NOTED. NOT COMPLAINING OF ''PAIN''. PATIENT SAYS HE GETS THIS WAY AT HOME AND TAKES A REFLUX PILL FOR IT. POSITION CHANGES SEEM TO HELP. PATIENT TENDS TO GET OUT OF BED ALOT. ON TELE MONITOR PATIENT REMAINS SB HIGH 50'S. VS DONE AND REMAIN STABLE. GENERAL FARM MANAGER WAS AT ROOM AND ALSO CHECKED THE TELE MONITOR. PATIENT DOES APPEAR TO BE NONCOMPLIANT AT TIMES.
[2023-06-30 06:15] VITALS: BP 95/58
--- NOTE | 2023-06-30 07:00 | NUR ---
RECEIVED BEDSIDE REPORT FROM YESSENIA DIAZ. PT IS RESTING IN BED AWAKE. VSS. ALL SAFETY MEASURES IN PLACE. PT IS STILL VERY IMPULSIVE. WILL NOT STAY IN BED, WILL NOT USE URINAL. SPOKE TO HOT AIR FURNACE INSTALLER AND REPAIRER ABOUT POSSIBILITY OF SITTER FOR PT WE ARE GIVING LACTULOSE AND PT WILL BE GOING TO THE RESTROOM MORE OFTEN. PT IS STILL VERY UNSTEADY ON HIS FEET. HE IS CONFUSED BUT RE-ORIENTS QUICKLY.
[2023-06-30 08:37] LABS: BASO% 0.9 % (0-3); EOS% 4.7 % (0-8); HEMATOCRIT 29.2 % (39.0-50.0); IMMATURE GRANULOCYTES 0.2 % (0.0-5.0); LYMPH% 25.8 % (15-41); MEAN CELL VOLUME 102.5 fL CALC (80.0-100.0); MEAN CORPUSCULAR HGB 35.1 pG CALC (26.0-32.0); MEAN CORPUSCULAR HGB CONC 34.2 g/dL CAL (32.0-36.0); MONO% 12.7 % (2-13); NEUT# 3.57 thou/uL (1.82-7.42); NEUT% 55.7 % (42-76); RED BLOOD COUNT 2.85 mill/uL (4.70-6.10); RED CELL DISTRI WIDTH 14.6 % (11.5-15.5)
[2023-06-30 08:43] LABS: INTERNATIONAL NORMALIZED RATIO 1.8 RATIO (0.7-1.3); PROTHROMBIN TIME 16.5 SECONDS (9.0-12.5)
[2023-06-30 08:48] LABS: ALBUMIN 2.6 g/dL (3.2-5.0); ALKALINE PHOSPHATASE 102 u/l (38-126); BILIRUBIN, TOTAL 2.8 mg/dL (0.2-1.3); BUN 18 mg/dL (8-23); BUN/CREATININE RATIO 19 (12-20 (CALC)); CARBON DIOXIDE 27 mmol/l (22-30); CHLORIDE 102 mmol/l (95-108); GFR FOR AFR.AMER. > 60 ML/MIN (>=60 (CALC)); GFR OTHER RACES > 60 ML/MIN (>=60 (CALC)); SGOT/AST 97 u/l (19-48); SODIUM 136 mmol/l (137-146); TOTAL PROTEIN 7.5 g/dL (6.3-8.2)
--- NOTE | 2023-06-30 09:16 | NUR ---
PT SITTING IN BED WATCHING TV. STATES HE "FEEL LIKE SHIT, BUT I DON'T HAVE LONG TO LIVE ANYWAY". RN SPOKE WITH PT ABOUT LIVER FAILURE AND HYPERAMMONIA AND THE SYMPTOMS. PT UNDERSTANDS HIS DISEASE. CONTINUES TO BE IMPULSIVE AND LUNGING OUT OF BED. SITTER PRESENT FOR SAFETY.
[2023-06-30 09:28] LABS: ANION GAP 12 (6-22 (CALC)); POTASSIUM 4.5 mmol/l (3.5-5.1)
[2023-06-30 11:02] VITALS: BP 113/61
--- NOTE | 2023-06-30 15:01 | NUR ---
PT COMPLAINS OF BLADDER PAIN AND INABILITY TO URINATE. PER MD VERBAL ORDERS, PT WAS STRAIGHT CATHED AND 400CC CLEAR YELLOW URINE REMOVED FROM BLADDER.
[2023-06-30 19:55] VITALS: BP 105/65
--- NOTE | 2023-06-30 20:00 | NUR ---
PATIENT RESTING IN BED WITH VISITOR AT BEDSIDE. AWAKE ALERT AND ORIENTEDX3. PATIENT STATESTHAT HE IS HAVING FREQUENT BM'S-PATIENT IS RECIEVING LACTULOSE TID. STATES THAT HE IS VOIDING ONLY SMALL AMTS WHEN HE IS HAVING A BM. BLADDER SCAN WAS DONE AND SHOWS 158MLS IN BLADDER AT THIS TIME. TELE MONITOR IN PLACE. IV SITE TO LAC INTACT. PATIENT REMAINS SLIGHTLY JAUNDICE. SAFETY PRECAUTIONS REINFORCED. BED ALARM IN PLACE. CALL LIGHT IN REACH. WILL CONT TO MONITOR.
[2023-06-30 20:03] VITALS: BP 112/68
[2023-07-01] VITALS (8 sets, daily range): BP systolic 92–116; BP diastolic 47–65
--- NOTE | 2023-07-01 00:20 | NUR ---
PATIENT RESTING IN BED-C/O PAIN AT LAC IV SITE-SITE WAS D/C'ED WITH CATH INTACT. NEW IV SITE STARTED TO RIGHT FOREARM-#22 GAUGE WITH GOOD BLOOD RETURN. CIPRO INFUSING ORDERED. TELE MONITOR IN PLACE. SAFETY PRECAUTIONS REINFORCED. CALL LIGHT IN REACH. WILL CONT TO MONITOR.
--- NOTE | 2023-07-01 02:22 | NUR ---
PATIENT UP AND DOWN TO THE BR-DID VOID 100CC OF URINE IN URINAL BUT BACK UP AND DOWN STATING THAT HE HAS TO GO MORE URINE. QUARLES CATH INSERTED WITHOUT ANY DIFFICUOLTY-#16 M[place] AND DRAINED 600CC OF ANA URINE. QUARLES WAS LEFT IN PLACE. MEDICATED FOR PAIN WITH ROXICODONE ORDERED. RESTING IN BED. TELE MONITOR IN PLACE. SALINE LOCK TO RIGHT FOREARM INTACT. BED ALARM INP LACE FOR PATIENT SAFETY. CALL LIGHT IN REACH. WILL CONT TO MONITOR.
--- NOTE | 2023-07-01 04:30 | NUR ---
BED ALARM GOING OFF AGAIN-PATIENT FOUND SITTING ON THE SIDE OF THE BED-C/O SEVERE GROIN PAIN. QUARLES IS PATENT AND DRAINING CLEAR YELLOW URINE. 600CC WAS EMPTIED. PATIENT ASKING FOR MEDICATION TO "KNOCK HIM OUT". EXPLAINED TO THE PATIENT THAT HE WAS JUST MEDICATED FOR PAIN AT 02OO AND IT IS TOO EARLY FOR MORE PAIN MEDS AT THIS TIME. ASSISTED BACK INTO BED. BED ALARM RESET. CALL LIGHT IN REACH. WILL CONT TO MONITOR.
--- NOTE | 2023-07-01 05:30 | NUR ---
PATIENT CONT TO BE VERY RESTLESS. CIWA SCORE WAS 10 AT 4AM. CALL PLACED TO DR. CARDONA. NEW ORDER FOR XQANAX 0.25MG PO X1 DOSE RECEIVE AND PATIENT WAS MEDICATED ORDERED. QUARELS REMAINS IN PLACE AND DRAINING CLEAR YELLOW URINE. TELE MONITOR IN PLACE. SALIKNE LOCK TO RIGHT FOREARM INTACT. BED ALARM REMAINS IN PLACE FOR PATIENT SAFETY, CALL LIGHT IN REACH. WILL CONT TO MONITOR.
--- NOTE | 2023-07-01 08:00 | NUR ---
PT SITTING UP IN BED, ALERT AND ORIENTED WITH CONFUSION AT TIMES. PT HAS NO C/O PAIN AT THIS TIME. PT HAS TELE ON WITH ALL LEADS ATTACHED. LUNG SOUNDS DIMINISHED AND CLEAR. ABD DISTENDED WITH ACTIVE BS, PT C/O ABD TENDERNESS UPON TOUCH. QUARLES INTACT DRAINING DARK YELLOW URINE INTO BAG. IV SITE TO RFA, SL CLEAN AND INTACT. PT HAS CALL LIGHT WITHIN REACH AND ALL SAFETY MEASURES IN PLACE.
[2023-07-01 09:24] LABS: BASO% 0.7 % (0-3); HEMATOCRIT 30.5 % (39.0-50.0); HEMOGLOBIN 9.8 g/dl (14.0-18.0); IMMATURE GRANULOCYTES 0.2 % (0.0-5.0); LYMPH% 36.7 % (15-41); MEAN CELL VOLUME 108.5 fL CALC (80.0-100.0); MEAN CORPUSCULAR HGB 34.9 pG CALC (26.0-32.0); MEAN CORPUSCULAR HGB CONC 32.1 g/dL CAL (32.0-36.0); MONO% 13.3 % (2-13); NEUT# 2.04 thou/uL (1.82-7.42); NEUT% 45.1 % (42-76); RED BLOOD COUNT 2.81 mill/uL (4.70-6.10); RED CELL DISTRI WIDTH 14.9 % (11.5-15.5)
[2023-07-01 09:41] LABS: ALBUMIN 2.7 g/dL (3.2-5.0); ALKALINE PHOSPHATASE 69 u/l (38-126); BILIRUBIN, TOTAL 3.1 mg/dL (0.2-1.3); BUN 14 mg/dL (8-23); BUN/CREATININE RATIO 16 (12-20 (CALC)); CHLORIDE 103 mmol/l (95-108); CREATININE 0.9 mg/dL (0.7-1.3); GFR FOR AFR.AMER. > 60 ML/MIN (>=60 (CALC)); GFR OTHER RACES > 60 ML/MIN (>=60 (CALC)); SGOT/AST 111 u/l (19-48); SODIUM 132 mmol/l (137-146); TOTAL PROTEIN 7.9 g/dL (6.3-8.2)
[2023-07-01 09:44] LABS: ANION GAP 15 (6-22 (CALC)); CARBON DIOXIDE 20 mmol/l (22-30); POTASSIUM 5.6 mmol/l (3.5-5.1)
--- NOTE | 2023-07-01 12:00 | NUR ---
PT SITTING UP IN BED, AWAKE. PT STATES PAIN MEDICATION WAS EFFECTIVE, PT HAS NO C/O PAIN AT THIS TIME. NO CHANGE IN STATUS. PT HAS CALL LIGHT WITHIN REACH, PT HAS ALL SAFETY MEASURES IN PLACE AT THIS TIME.
[2023-07-01 13:46] LABS: INTERNATIONAL NORMALIZED RATIO 1.7 RATIO (0.7-1.3); PROTHROMBIN TIME 16.2 SECONDS (9.0-12.5)
--- NOTE | 2023-07-01 13:56 | NUR ---
QUARLES REMOVED 500 IN BAG, PT TOLERATED WELL. PT HAS URINAL AT BEDSIDE FOR VOID TRIAL.
--- NOTE | 2023-07-01 16:00 | NUR ---
PT IN BED WITH HOB, FAMILY AT BEDSIDE. PT HAS NO C/O PAIN AT THIS TIME. PT HAS CALL LIGHT WITHIN REACH.
--- NOTE | 2023-07-01 16:09 | NUR ---
BLADDER SCAN DONE 113 ML URINE NOTED. PT STATES HE HAS NO URGE TO URINATE.
--- NOTE | 2023-07-01 19:41 | NUR ---
PATIENT UP IN THE BR-CONT TO HAVE LOOSE LIGHT BROWN STOOLS-PATIENT IS ON LACTULOSE FOR LIVER DISEASE. PATIENT CONT TO BE UNSTEADY ON HIS FEET. ALERT AND ORIENTEDX2. VOIDED 100CC OF ANA URINE IN URINAL. C/O ABD PAIN-MEDICATED WITH RTOXICODONE 10MG PO FOR 7/10 ABD PAIN. TELE MONITOR IN PLACE. SALINE LOCK TO RIGHT FOREARM INTACT AND HEALTHY AT THIS TIME. LUNGS ARE CLEAR. ABD IS SOFTLY DISTENDED. NO PERIPHERAL EDEMA NOTED. PULSES ARE PALPABLE. SAFETY PRECAUTIONS REINFORCED. BED ALARM IN PLACEFOR PATIENT SAFETY. CALL LIGHT IN REACH. WILL CONT TO MONITOR.
--- NOTE | 2023-07-01 23:13 | NUR ---
PATIENT RESTING IN BED-PATIENT STATES THAT HE HAS TO URINATE AND WENT TO THE BR BUT DID NOT USE URINAL FOR MEASURING THE URINE AND VOIDED DIRECTLY INTO THE TOILET. VOIDED WHAT APPEARED TO BE LARGE AMT. REINFORCED WITH THE PATIENT AGAIN THAT WE DO NEED HIM TO USE THE URINAL FOR ACCURATE I&O. ASSTATES THAT HE FORGOT. CONT TO BE UNSTEADY ON HIS FEET AND RETURNED TO THE BED. CIPRO HUNG AND INFUSING VIA RIGHT FOREARM IV SITE. SITE IS HEALTHY WITH GOOD BLOOD RETURN. MEDICATED WITH SONATA 5MG PO FOR SLEEP. TELE MONITOR IN PLACE. BED ALARM IN PLACE FOR PATIENT SAFETY. SAFETY PRECAUTIONS REINFORCED. CALL LIGHT IN REACH. WILL CONT TO MONITOR.
--- NOTE | 2023-07-02 00:21 | NUR ---
PATIENT RESTING IN BED AT THIS TIME WITH EYES CLOSED. RESPS ARE EVEN AND UNLABORED, TELE MONITOR IN PLACE. BED ALARM IN PLACE FOR PATIENT SAFETY. CALL LIGHT IN REACH. WILL CONT TO MONITOR.
--- NOTE | 2023-07-02 02:11 | NUR ---
PATIENT RESTING IN BED AT THIS TIME. POSITIONED ON RIGHT SIDE WITH EYES CLOSED. FLAGYL HAS COMPLETED. TELE MONITOR IN PLACE. RESPS ARE EVEN AND UNLABORED. BED ALARM IN PLACE FOR PATIENT SAFETY. CALL LIGHT IN REACH. WILL CONT TO MONITOR.
--- NOTE | 2023-07-02 04:38 | NUR ---
PATIENT RESTING IN BED AT THIS TIME. EYES ARE CLOSED AND RESPS ARE EVEN AND UNLABORED. TELE MONITOR IN PLACE. PATIENT IVF SITE TO RIGHT FOREARM INTACT. SLEEPING MUCH BETTER TONIGHT-NO RESTLESS PREVIOUS NIGHTS. BED ALARM IN PLACE FOR PATIENT SAFETY. CALL LIGHT IN REACH. WILL CONT TO MONITOR.
[2023-07-02 05:02] VITALS: BP 105/60
[2023-07-02 06:27] VITALS: BP 100/63
[2023-07-02 06:49] LABS: BASO% 0.5 % (0-3); EOS% 5.2 % (0-8); HEMATOCRIT 29.9 % (39.0-50.0); HEMOGLOBIN 10.2 g/dl (14.0-18.0); IMMATURE GRANULOCYTES 0.2 % (0.0-5.0); MEAN CORPUSCULAR HGB 34.6 pG CALC (26.0-32.0); MEAN CORPUSCULAR HGB CONC 34.1 g/dL CAL (32.0-36.0); MONO% 12.8 % (2-13); NEUT# 1.84 thou/uL (1.82-7.42); NEUT% 45.3 % (42-76); RED BLOOD COUNT 2.95 mill/uL (4.70-6.10); RED CELL DISTRI WIDTH 14.4 % (11.5-15.5)
[2023-07-02 06:52] LABS: MEAN CELL VOLUME 101.4 fL CALC (80.0-100.0)
[2023-07-02 07:10] LABS: ALBUMIN 2.8 g/dL (3.2-5.0); ALKALINE PHOSPHATASE 70 u/l (38-126); ANION GAP 12 (6-22 (CALC)); BILIRUBIN, TOTAL 3.1 mg/dL (0.2-1.3); BUN 11 mg/dL (8-23); BUN/CREATININE RATIO 12 (12-20 (CALC)); CHLORIDE 100 mmol/l (95-108); CREATININE 0.9 mg/dL (0.7-1.3); GFR FOR AFR.AMER. > 60 ML/MIN (>=60 (CALC)); GFR OTHER RACES > 60 ML/MIN (>=60 (CALC)); MAGNESIUM 1.6 mg/dL (1.6-2.3); POTASSIUM 4.5 mmol/l (3.5-5.1); SGOT/AST 118 u/l (19-48); SODIUM 132 mmol/l (137-146)
[2023-07-02 07:13] LABS: CARBON DIOXIDE 25 mmol/l (22-30)
--- NOTE | 2023-07-02 08:00 | NUR ---
PT IN BED WITH HOB ALERT AND ORIENTED X 3. PT HAS NO C/O PAIN AT THIS TIME. PT HAS TELE ON WITH ALL LEADS ATTACHED. IV SITE TO RAC CLEAN AND INTACT. PT LUNGS DIMINISHED. ABD SOFT WITH ACTIVE BS. PT AMBULATES THE BATHROOM WITH ASSIST FOR TOILETING NEEDS. PT HAS CALL LIGHT WITHIN REACH AND ALL SAFETY MEASURES IN PLACE AT THIS TIME.
[2023-07-02 10:46] VITALS: BP 106/63
[2023-07-02] MEDS ORDERED: CONSTULOSE10 GM/15 M PO (11:51)
[2023-07-02] MEDS ORDERED: MIDODRINE5 MG PO (11:53)
[2023-07-02] MEDS ORDERED: TAMSULOSIN HCL0.4 MG PO (11:53)
[2023-07-02] MEDS ORDERED: CIPROFLOXACN500 MG PO (11:54)
[2023-07-02] MEDS ORDERED: METRONIDAZOLE250 MG PO (11:57)
--- NOTE | 2023-07-02 12:00 | NUR ---
PT SITTING UP IN CHAIR ALERT AND ORIENTED WITH FRIEND AT BEDSIDE. PT HAS NO C/O PAIN AT THIS TIME. PT HAS NO CHANGE IN STATUS AT THIS TIME.
--- NOTE | 2023-07-02 12:33 | NUR ---
Discharge instructions given. Patient verbalizes understanding of same. Discharged in stable condition via Wheelchair to Home with family. All belongings sent with pt.
== END 2023-07-02 12:35 | disposition home health service (06) | DRG 442 ==
LOC: ED 19:09 → ED-I 19:49 → ED 23:09 → MS2 23:10
PROVIDERS: Emergency Medicine; Nurse Practitioner Family; Student in an Organized Health Care Education/Training Program; ADMIT Internal Medicine; ATTEND Student in an Organized Health Care Education/Training Program
PROC: 0W9G3ZX Drainage of Peritoneal Cavity, Percutaneous Approach, Diagnostic (ICD-10-PCS; principal; 2023-06-28)
DX: K76.82 Hepatic encephalopathy (principal); E72.20 Disorder of urea cycle metabolism, unspecified; E87.20 Acidosis, unspecified; E87.1 Hypo-osmolality and hyponatremia; K70.31 Alcoholic cirrhosis of liver with ascites; F10.10 Alcohol abuse, uncomplicated; D69.59 Other secondary thrombocytopenia; I11.0 Hypertensive heart disease with heart failure; I50.9 Heart failure, unspecified; N28.1 Cyst of kidney, acquired; K52.9 Noninfective gastroenteritis and colitis, unspecified; E11.9 Type 2 diabetes mellitus without complications; K21.9 Gastro-esophageal reflux disease without esophagitis; E78.5 Hyperlipidemia, unspecified; E87.5 Hyperkalemia; Z20.822 Contact with and (suspected) exposure to COVID-19
CPT/HCPCS: J2060; J3475; Q9967

== ENCOUNTER 2023-07-09 22:51 | Observation (INO) | payer MEDICARE, OTHER ==
[~2023-07-09] VITALS: Ht 170.2 cm; Wt 71.2 kg
[~2023-07-09 22:51] MED LIST changes: +ALPRAZOLAM0.5 M2 PO; +CIPROFLOXACN500 MG PO; +METRONIDAZOLE250 MG PO; +MIDODRINE5 MG PO; +TAMSULOSIN HCL0.4 MG PO
[2023-07-09 23:00] VITALS: BP 104/56
[2023-07-09 23:15] VITALS: BP 80/51
[2023-07-09 23:19] VITALS: BP 87/52
[2023-07-09 23:28] VITALS: BP 90/61
[2023-07-09 23:44] VITALS: BP 92/54
[2023-07-09 23:45] VITALS: BP 83/53
[2023-07-10] VITALS (19 sets, daily range): BP systolic 82–123; BP diastolic 50–69
[2023-07-10] LABS: BASO% 0.4 % (0-3); EOS% 4.8 % (0-8); HEMATOCRIT 27.2 % (39.0-50.0); HEMOGLOBIN 9.2 g/dl (14.0-18.0); IMMATURE GRANULOCYTES 0.2 % (0.0-5.0); LYMPH% 21.3 % (15-41); MEAN CORPUSCULAR HGB 33.8 pG CALC (26.0-32.0); MEAN CORPUSCULAR HGB CONC 33.8 g/dL CAL (32.0-36.0); MONO% 9.7 % (2-13); NEUT# 3.56 thou/uL (1.82-7.42); NEUT% 63.6 % (42-76); RED BLOOD COUNT 2.72 mill/uL (4.70-6.10); RED CELL DISTRI WIDTH 14.4 % (11.5-15.5)
[2023-07-10 01:25] LABS: ALBUMIN 2.6 g/dL (3.2-5.0); ALKALINE PHOSPHATASE 89 u/l (38-126); ANION GAP 10 (6-22 (CALC)); BILIRUBIN, TOTAL 4.9 mg/dL (0.2-1.3); BUN 10 mg/dL (8-23); BUN/CREATININE RATIO 13 (12-20 (CALC)); CARBON DIOXIDE 22 mmol/l (22-30); CHLORIDE 102 mmol/l (95-108); CREATININE 0.8 mg/dL (0.7-1.3); GFR FOR AFR.AMER. > 60 ML/MIN (>=60 (CALC)); GFR OTHER RACES > 60 ML/MIN (>=60 (CALC)); SGOT/AST 125 u/l (19-48); SODIUM 130 mmol/l (137-146); TOTAL PROTEIN 7.8 g/dL (6.3-8.2)
[2023-07-10 03:49] LABS: URINE BILIRUBIN - DIPSTICK Negative (NEGATIVE); URINE BLOOD DIPSTICK Negative (NEGATIVE); URINE COLOR Yellow; URINE GLUCOSE - DIPSTICK Negative (NEGATIVE); URINE KETONE Negative (NEGATIVE); URINE LEUK ESTERASE Negative (NEGATIVE); URINE NITRITE - DIPSTICK Negative (Negative); URINE PROTEIN - DIPSTICK Negative (NEG-TRACE)
[2023-07-11] VITALS (8 sets, daily range): BP systolic 100–124; BP diastolic 53–71
[2023-07-11 05:23] LABS: BASO% 0.5 % (0-3); EOS% 4.6 % (0-8); HEMATOCRIT 24.4 % (39.0-50.0); HEMOGLOBIN 8.6 g/dl (14.0-18.0); IMMATURE GRANULOCYTES 0.2 % (0.0-5.0); LYMPH% 25.8 % (15-41); MEAN CELL VOLUME 98.4 fL CALC (80.0-100.0); MEAN CORPUSCULAR HGB 34.7 pG CALC (26.0-32.0); MEAN CORPUSCULAR HGB CONC 35.2 g/dL CAL (32.0-36.0); MONO% 12.5 % (2-13); NEUT# 3.16 thou/uL (1.82-7.42); NEUT% 56.4 % (42-76); RED BLOOD COUNT 2.48 mill/uL (4.70-6.10); RED CELL DISTRI WIDTH 14.4 % (11.5-15.5)
[2023-07-11 05:39] LABS: ALBUMIN 2.5 g/dL (3.2-5.0); ALKALINE PHOSPHATASE 82 u/l (38-126); ANION GAP 8 (6-22 (CALC)); BILIRUBIN, TOTAL 4.3 mg/dL (0.2-1.3); BUN 10 mg/dL (8-23); BUN/CREATININE RATIO 13 (12-20 (CALC)); CARBON DIOXIDE 26 mmol/l (22-30); CHLORIDE 101 mmol/l (95-108); CREATININE 0.8 mg/dL (0.7-1.3); GFR FOR AFR.AMER. > 60 ML/MIN (>=60 (CALC)); GFR OTHER RACES > 60 ML/MIN (>=60 (CALC)); MAGNESIUM 1.5 mg/dL (1.6-2.3); POTASSIUM 3.9 mmol/l (3.5-5.1); SGOT/AST 101 u/l (19-48); SODIUM 131 mmol/l (137-146); TOTAL PROTEIN 7.5 g/dL (6.3-8.2)
[2023-07-12 03:56] VITALS: BP 101/57
[2023-07-12 05:51] LABS: BASO% 0.3 % (0-3); EOS% 5.2 % (0-8); HEMATOCRIT 27.7 % (39.0-50.0); HEMOGLOBIN 9.4 g/dl (14.0-18.0); IMMATURE GRANULOCYTES 0.2 % (0.0-5.0); MEAN CELL VOLUME 99.3 fL CALC (80.0-100.0); MEAN CORPUSCULAR HGB 33.7 pG CALC (26.0-32.0); MEAN CORPUSCULAR HGB CONC 33.9 g/dL CAL (32.0-36.0); MONO% 11.9 % (2-13); NEUT# 3.28 thou/uL (1.82-7.42); NEUT% 53.4 % (42-76); RED BLOOD COUNT 2.79 mill/uL (4.70-6.10); RED CELL DISTRI WIDTH 14.5 % (11.5-15.5)
[2023-07-12 06:27] LABS: ALBUMIN 2.7 g/dL (3.2-5.0); ALKALINE PHOSPHATASE 102 u/l (38-126); BILIRUBIN, TOTAL 3.4 mg/dL (0.2-1.3); BUN 9 mg/dL (8-23); BUN/CREATININE RATIO 11 (12-20 (CALC)); CARBON DIOXIDE 27 mmol/l (22-30); CHLORIDE 100 mmol/l (95-108); CREATININE 0.8 mg/dL (0.7-1.3); GFR FOR AFR.AMER. > 60 ML/MIN (>=60 (CALC)); GFR OTHER RACES > 60 ML/MIN (>=60 (CALC)); SGOT/AST 110 u/l (19-48); SODIUM 132 mmol/l (137-146); TOTAL PROTEIN 8.1 g/dL (6.3-8.2)
[2023-07-12 06:28] LABS: ANION GAP 10 (6-22 (CALC)); POTASSIUM 4.7 mmol/l (3.5-5.1)
[2023-07-12 07:30] VITALS: BP 123/68
[2023-07-12 12:27] VITALS: BP 119/68
[2023-07-12] MEDS ORDERED: CONSTULOSE10 GM/15 M PO (13:19)
== END 2023-07-12 16:16 | disposition home health service (06) ==
LOC: ED 22:51 → ED-I 07-10 02:35 → ED 07-10 03:43 → MS2 07-10 03:44
PROVIDERS: Emergency Medicine; Nurse Practitioner Family; ADMIT Internal Medicine; ATTEND Internal Medicine
PROC: 0W9G3ZZ Drainage of Peritoneal Cavity, Percutaneous Approach (ICD-10-PCS; principal; 2023-07-10)
DX: G93.41 Metabolic encephalopathy (principal); E72.20 Disorder of urea cycle metabolism, unspecified; K70.31 Alcoholic cirrhosis of liver with ascites; F10.10 Alcohol abuse, uncomplicated; S02.2XXA Fracture of nasal bones, initial encounter for closed fracture; S00.31XA Abrasion of nose, initial encounter; E87.20 Acidosis, unspecified; I11.0 Hypertensive heart disease with heart failure; I50.9 Heart failure, unspecified; E11.9 Type 2 diabetes mellitus without complications; K21.9 Gastro-esophageal reflux disease without esophagitis; E78.5 Hyperlipidemia, unspecified; W19.XXXA Unspecified fall, initial encounter; Y92.009 Unspecified place in unspecified non-institutional (private) residence as the place of occurrence of the external cause; Z20.822 Contact with and (suspected) exposure to COVID-19; E87.5 Hyperkalemia
CPT/HCPCS: Q9967